=== PATIENT | female | born 1970 | race Caucasian/White ===

== ENCOUNTER → 2017-10-24 17:23 | Outpatient (CLI) | payer OTHER, SELFPAY ==
[2017-10-30 13:08] LABS: HPV APTIMA, High Risk Negative (Negative)
== END ==
PROVIDERS: Visit Provider Nurse Practitioner Women's Health
DX: Z12.4 Encounter for screening for malignant neoplasm of cervix (principal)
CPT/HCPCS: 88175; G0145

== ENCOUNTER 2020-01-24 12:33 | Emergency (ER) | payer OTHER, SELFPAY ==
[2020-01-24 12:34] VITALS: BP 162/112; PULSE 108; RESP 18; TEMP 36.6; O2SAT 99; BMI 26.5
[2020-01-24] MEDS: Diphth,Pertuss(Acell),Tet Vac 0.5 ML Vial IM (13:40)
--- NOTE | 2020-01-24 14:26 | ED.VIS.GEN ---
History of Present Illness Chief Complaint: Laceration Informant: Patient Narrative: Patient was using a tremor this morning and sustained a laceration to the right ring and long finger. Unknown last tetanus. She is left-handed Past Medical History - Allergies and Home Meds Allergies/Adverse Reactions: Allergies No Known Allergies Allergy (Verified 01/24/20 12:37) Primary Care Physician: Neto Lisa MD [STAFF PHYSICIAN] - 10 Day for suture removal Past Medical History: None Surgical History: noncontributory Smoking Status: Never smoker Drugs: None Review of Systems General: Denies: Chills, Fever, Sweats Eyes: Denies: Visual changes - bilaterally, Diplopia ENT: Denies: Rhinorrhea, Sore throat Cardiovascular: Denies: Chest pain, Palpitations Respiratory: Denies: Dyspnea, Cough, Dyspnea on exertion Gastrointestinal: Denies: Abdominal pain, Nausea, Vomiting, Diarrhea, Melena, Hematochezia Genitourinary: Denies: Dysuria, Hematuria, Frequency Musculoskeletal: Reports: Extremity Pain. Denies: Back pain Skin: Denies: Rash, Wounds Neurological: Denies: Headache, Weakness, Numbness Physical Exam Vital Signs/Narrative: Vital Signs Temp Pulse Resp BP Pulse Ox 01/24/20 12:34 97.8 F 108 H 18 162/112 H 99 Inital Vital Signs reviewed: Yes General: Well nourished, Well developed, No Acute Distress Head: Normocephalic, Atraumatic Eyes: Perrl, EOMI ENT: Moist mucous membranes, No rhinorrhea Neck: Supple, Nontender Cardiovascular: Regular rate, Regular rhythm, No murmurs Respiratory: No distress, CTA bilaterally, Chest nontender Abdomen: Soft, Nontender, Nondistended, Normal bowel sounds Back: Nontender, Normal Inspection Extremities: No edema, Tenderness Skin: Normal color, No rash, Trauma - Right fat pad of ring finger demonstrates a 1.5 cm curvilinear laceration. No injury to the dorsal aspect. Right middle finger demonstrates a macerated 1.5 cm laceration over the fat pad. No injury to the dorsal aspect. Neurological: Alert, Oriented x3, Cranial nerves II-XII grossly intact, Normal Strength, Normal Sensation Psychological: Normal affect, Normal Mood Diagnostic/Tx/Re-eval - Medical Decision Making Wounds were washed with soap and water she underwent local digital block using 1% lidocaine using a single volar approach. After adequate anesthesia wounds were washed with Shur-Clens and explored. The ring finger was closed using a total of #4 simple interrupted 5-0 Ethilon sutures. The middle finger was closed using a total of #5 simple interrupted 5-0 Ethilon sutures. Tetanus was updated with Adacel. Wounds were dressed by nursing. Local wound care discussed stitches will need to be removed in 10 days. ED Disposition - Plan for ED Patient: Disposition: Home or Assisted Living Diagnosis: Finger laceration Instructions: ED Laceration Hand Referrals: Neto Lisa MD [STAFF PHYSICIAN] - 10 Day for suture removal
== END 2020-01-24 14:49 | disposition home or self-care (01) ==
PROVIDERS: Emergency Provider Emergency Medicine
DX: S61.214A Laceration without foreign body of right ring finger without damage to nail, initial encounter (principal); S61.212A Laceration without foreign body of right middle finger without damage to nail, initial encounter; Z23 Encounter for immunization; W29.3XXA Contact with powered garden and outdoor hand tools and machinery, initial encounter; Y93.89 Activity, other specified; Y92.89 Other specified places as the place of occurrence of the external cause; Y99.8 Other external cause status
CPT/HCPCS: 12002; 90715; 99284

== ENCOUNTER 2020-11-07 16:57 | Inpatient (IN) | payer OTHER, SELFPAY ==
[2020-11-07] VITALS (9 sets, daily range): BP systolic 123–166; BP diastolic 71–90; PULSE 73–90; RESP 17–18; TEMP 36.5–37.3; O2SAT 98–100; BMI 26.2
--- NOTE | 2020-11-07 17:50 | CT_ITS ---
HISTORY: vaginal infection/perineum EXAMINATION: CT Abdomen And Pelvis W/ Contrast Injection TECHNIQUE: Helically acquired images were obtained of the abdomen and pelvis following IV contrast. A radiation dose optimization technique was used for this scan. IV Contrast dosage and agent: Not specified Oral contrast: None. COMPARISON: None FINDINGS: LOWER CHEST: Lung bases are clear. No cardiomegaly or pericardial effusion. LIVER: Homogeneous. No focal mass. GALLBLADDER AND BILIARY TREE: Calcified gallstones. No gallbladder distension or wall edema. No intra- or extrahepatic biliary ductal dilation. PANCREAS: No focal cystic or solid mass. SPLEEN: Normal size without focal cystic or solid mass. ADRENAL GLANDS: No nodules. KIDNEYS AND URETERS: Normal renal size and position. No hydronephrosis. PERITONEUM: No ascites or free air. BOWEL: Normal appendix. No stomach or bowel distension. No focal inflammatory bowel wall changes. LYMPH NODES: No enlarged mesenteric or retroperitoneal lymph nodes. VESSELS: Aorta is non-dilated. URINARY BLADDER: Unremarkable. REPRODUCTIVE ORGANS: No pelvic masses. IUD in place. ABDOMINAL WALL: Subcutaneous fatty induration and edema of the anterior perineum and labia without discrete fluid collection or gas formation. BONES: No acute or aggressive abnormality. CT/Abdomen/Pelvis WITH Contrast IMPRESSION: Soft tissue edema/cellulitis of the anterior perineum and labia without evidence of abscess formation. Individualized dose optimization techniques were used for this CT. at 2111 Reported and signed by: Jose Wild MD Electronically Signed: Jose Wild MD at 21:10 EDT Tel , Service support ,
--- NOTE | 2020-11-07 17:52 | EKG12_ITS ---
Test Reason : DYSRHYTHMIA Blood Pressure : / mmHG Vent. Rate : 070 BPM Atrial Rate : 070 BPM P-R Int : 148 ms QRS Dur : 088 ms QT Int : 372 ms P-R-T Axes : 048 -05 025 degrees QTc Int : 401 ms Normal sinus rhythm Normal ECG Confirmed by CARTER VELAZQUEZ, CARLYN ([id number]), editor department GARTH DAVID ([id number]) on 11/10/2020 12:48:52 PM Referred By: RANDALL Confirmed By:CARLYN MACHADO MD
--- NOTE | 2020-11-07 17:54 | ED.VIS.FEGU ---
HPI HPI - Female History of Present Illness Chief Complaint: Vag Bleeding Narrative Narrative: Patient presents with what she thinks is a vaginal infection. She states that she shaved her genital area last week, approximately 6 days ago. She began feeling ill on Saturday, and not right. , she felt fatigued. She denies any fever or chills, but endorses malaise and fatigue. No chest pain or shortness of breath. Over the weekend, she states that her genital area and labia became inflamed and swollen. She has pain with urination to the point where she does not want to drink a lot of fluid because it hurts when she urinates. She has noticed a lot of vaginal discharge in the area. She has pain with walking and movement. She states that the area is very inflamed. [facility] Medical History (Updated 11/07/20 @ 22:[address] Neto Lisa MD) Left carpal tunnel syndrome Migraines Home Medications [id number] 250 mg-250 mg-65 mg tablet 1 tab PO ONCE 10/24/17 [History Last Taken Unknown] ibuprofen 200 mg tablet 200 mg PO TID-QID PRN 10/24/17 [History Last Taken Unknown] levonorgestrel 20 mcg/24 hours (6 yrs) 52 mg intrauterine device 1 insert INTRAUTERINE ONCE 10/24/17 [History Last Taken Unknown] Allergy/AdvReac Type Severity Reaction Status Date / Time No Known Allergies Allergy Verified 01/24/20 12:37 Family History Mother Diabetes Hypertension Hyperlipidemia Social History (Updated 01/02/18 @ 15:20 by Elsie Ritchie NP, SCIENCE MANAGER-C) Smoking Status: Never smoker alcohol intake: current details: occasionally substance use type: does not use caffeine: Yes what type of physical activity do you participate in: walking and weight training frequency: daily seatbelt use: always do you feel safe at home: Yes additional social history: - Eliezer-Works at [employer] Patient works at [employer] ROS ROS ED ROS Narrative Constitutional: No fever, no chills. Positive malaise and fatigue. HEENT: No sore throat. No neck pain. No loss of vision. No rhinorrhea. Cardiovascular: No chest pain. No palpitations. No pedal edema. Respiratory: No cough, no shortness of breath. Abdominal: No abdominal pain. No nausea. No vomiting. Genitourinary: Positive dysuria. No hematuria. Positive vaginal swelling and vaginal pain. Positive discharge. Neurologic: No headaches. No dizziness. No lightheadedness. Skin: No rash. No change in color. EXAM Physical Exam Narrative Exam Narrative: Afebrile. Vital signs noted. HEENT: Normocephalic. Atraumatic. PERRL, EOMI. Neck soft and supple. Cardiovascular: Regular rate and rhythm. No murmurs, rubs, or gallops appreciated. Respiratory: No tachypnea. Lungs clear to auscultation bilaterally. Gastrointestinal: Abdomen soft, nontender, with normoactive bowel sounds. No rebound or guarding. Genitourinary: Salon Customer Experience Specialist present. Positive swelling of labia minora and majora with purulent discharge surrounding. Minimal tenderness in perineal area with mild erythema. No fluctuance. Positive purulent discharge. Neurological: Nonfocal, nonlateralizing. Skin: No rash. Normal color. No pallor. Musculoskeletal: No pedal edema. Full range of motion extremities. Const Vital Signs: 11/07/20 16:58 11/07/20 16:59 11/07/20 17:55 Temperature 99.0 F 99.0 F Temperature Source Oral Oral Pulse Rate 90 90 Respiratory Rate 18 18 Blood Pressure 166/90 H 166/90 H Blood Pressure Mean 115 115 Pulse Ox 100 100 Oxygen Delivery Method Room Air Room Air Room Air 11/07/20 18:26 11/07/20 19:00 11/07/20 20:15 Temperature 99.1 F 98.7 F Temperature Source Oral Temporal Pulse Rate 83 73 80 Respiratory Rate 18 17 18 Blood Pressure 156/82 H 156/82 H Blood Pressure Mean 106 106 Pulse Ox 100 100 98 Oxygen Delivery Method Room Air Room Air Room Air 11/07/20 21:00 Temperature Temperature Source Pulse Rate 82 Respiratory Rate 18 Blood Pressure 147/78 H Blood Pressure Mean 101 Pulse Ox 100 Oxygen Delivery Method Room Air MDM MDM MDM Narrative Medical decision making narrative: Comprehensive work-up was pursued. Concern is for deeper infection of the pelvis. I did perform a sepsis work-up. CBC shows normal white count of 6.9, hemoglobin stable at 15.7, with hematocrit 49.4. Normal platelet count. CMP is grossly normal. Lactic acid normal at 1.8. Blood cultures are pending. She does have white cells in her urinalysis, but I do feel that it may be more of a contaminant given her physical examination with a lot of discharge about the introitus and from the labia minora. CT of the abdomen and pelvis with IV contrast shows cellulitis of the perineum and of the labia with soft tissue swelling, but no discrete abscess. She was started on vancomycin and Zosyn. I did discuss the patient with the PRODUCT ENGINEER on-call who agrees with inpatient admission to the hospitalist. The patient does see Elsie Ritchie the nurse practitioner who inserted her IUD. Patient was offered morphine for analgesia, but requested something like ibuprofen she was administered Toradol 30 mg intravenously. Given the extent of her cellulitis, and discomfort, patient was discussed with the hospitalist for admission. She is in stable condition. Lab Data Attestation: I reviewed the patient's lab results. Labs: Laboratory Results - last 24 hr 11/07/20 11/07/20 11/07/20 18:21 18:21 18:21 WBC 6.9 RBC 5.71 H Hgb 15.7 H Hct 49.4 H MCV 86.5 MCH 27.5 MCHC 31.8 L RDW Std Deviation 40.3 RDW Coeff of Kiana 12.8 Plt Count 270 MPV 11.7 Immature Gran % (Auto) 0.400 Neut % (Auto) 65.1 Lymph % (Auto) 25.0 [place] % (Auto) 8.8 Eos % (Auto) 0.1 Baso % (Auto) 0.6 Absolute Neuts (auto) 4.5 Absolute Lymphs (auto) 1.73 Nucleated RBC % 0 PT 12.5 INR 1.0 APTT 22.7 L Sodium 138 Potassium 3.8 Chloride 106 Carbon Dioxide 26.0 Anion Gap 6 BUN 13 Creatinine 0.60 Estim Creat Clear Calc 91.76 Est GFR (MDRD) Af Amer 135 Est GFR (MDRD) Non-Af 111 BUN/Creatinine Ratio 21.6 H Glucose 254 H Lactic Acid Calcium 9.0 Total Bilirubin 0.60 AST 20 ALT 24 Alkaline Phosphatase 174 H Total Protein 8.5 H Albumin 3.6 Globulin 4.9 H Albumin/Globulin Ratio 0.7 L Urine Color Urine Clarity Urine pH Ur Specific [place] Urine Protein Urine Glucose (UA) Urine Ketones Urine Occult Blood Urine Nitrite Urine Bilirubin Urine Urobilinogen Ur Leukocyte Esterase Urine RBC Urine WBC Ur Squamous Epith Cells Urine Bacteria Urine Mucus 11/07/20 11/07/20 18:21 18:21 WBC RBC Hgb Hct MCV MCH MCHC RDW Std Deviation RDW Coeff of Kiana Plt Count MPV Immature Gran % (Auto) Neut % (Auto) Lymph % (Auto) [place] % (Auto) Eos % (Auto) Baso % (Auto) Absolute Neuts (auto) Absolute Lymphs (auto) Nucleated RBC % PT INR APTT Sodium Potassium Chloride Carbon Dioxide Anion Gap BUN Creatinine Estim Creat Clear Calc Est GFR (MDRD) Af Amer Est GFR (MDRD) Non-Af BUN/Creatinine Ratio Glucose Lactic Acid 1.8 Calcium Total Bilirubin AST ALT Alkaline Phosphatase Total Protein Albumin Globulin Albumin/Globulin Ratio Urine Color Yellow Urine Clarity Cloudy Urine pH 5.0 Ur Specific [place] 1.025 Urine Protein 100 H Urine Glucose (UA) 1000 H Urine Ketones 150 A* Urine Occult Blood 150 H Urine Nitrite Negative Urine Bilirubin Negative Urine Urobilinogen Normal Ur Leukocyte Esterase 500 H Urine RBC 10-25 SEEN Urine WBC 50-100 SEEN Ur Squamous Epith Cells 0-5 SEEN Urine Bacteria RARE Urine Mucus 0 SEEN Radiography Diagnostic Testing: Radiology Impression Abdomen/Pelvis CT 11/07/20 17:50 IMPRESSION: Soft tissue edema/cellulitis of the anterior perineum and labia without evidence of abscess formation. Individualized dose optimization techniques were used for this CT. at 2111 Reported and signed by: Jose Wild MD Electronically Signed: Jose Wild MD at 21:10 EDT Tel , Service support , Discharge Plan Triage Chief Complaint: Vag Bleeding ED Provider: Trenton Tripp Dx/Rx/DC Orders Primary Care Provider: Care Physician,No Primary
--- NOTE | 2020-11-07 18:12 | NURSING ---
NO OLD EKGS
[2020-11-07] MEDS: 0.9% Normal Saline 1,000 ML 999 ML IV (18:21)
[2020-11-07 18:31] LABS: Mucous, Urine 0 SEEN /hpf (<or=2+)
[2020-11-07 18:35] LABS: Absolute Lymphocyte Count 1.73 X10^3/uL (0.83-4.51); Absolute Neutrophil Count 4.5 X10^3/uL (2.0-7.7); Basophil# 0.04 X10^3/uL; Basophil% 0.6 % (0-1); Color, Urine Yellow (Yellow); Eosinophil# 0.01 X10^3/uL; Eosinophils% 0.1 % (0-5); Glucose, Dipstick 1000 mg/dl (Normal); Hematocrit 49.4 % (37-47); Hemoglobin 15.7 g/dL (12.0-15.0); Leukocyte Esterase-Dipstick 500 /ul (Negative); Lymphocyte # 1.73 X10^3/ul (0.83-4.51); Mean Corp Hgb Conc 31.8 g/dL (32-36); Mean Corpuscular Hgb 27.5 pg (27.0-32.0); Mean Corpuscular Volume 86.5 fL (81-99); Mean Platelet Vol. 11.7 fl (6.2-12.0); Monocyte# 0.61 X10^3/uL; Monocyte% 8.8 % (0-10); NRBC Flagged by Analyzer 0 % (0-5); Neutrophil # 4.51 X10^3/uL (2.7-7.7); Neutrophil % 65.1 % (47-70); Nitrite-Dipstick Negative (Negative); Occult Blood-Urine 150 /ul (Negative); Platelet Count 270 K/mm3 (150-450); Protein-Dipstick 100 mg/dl (Negative); RBC Distribution Width CV 12.8 % (11.6-14.6); RBC Distribution Width SD 40.3 fl (35.1-43.9); Red Blood Count 5.71 M/mm3 (4.2-5.4); Specific Gravity, Urine 1.025 (1.002-1.030); Urine Bilirubin Dipstick Negative (Negative); Urine Clarity Cloudy (Clear); Urine Urobilinogen Normal (Normal); White Blood Count 6.9 K/mm3 (4.4-11.0)
[2020-11-07 18:43] LABS: Ketone-Dipstick 150 mg/dl (Negative); Prothrombin Time (Protime)PT. 12.5 SECONDS (11.7-14.9)
[2020-11-07 18:44] LABS: Partial Thromboplast Time 22.7 Seconds (24.1-36.2)
[2020-11-07 18:45] LABS: Bacteria RARE /hpf (None Seen); Red Blood Cells-Urine 10-25 SEEN /hpf (0-5); Squamous Epithelial Cells - UA 0-5 SEEN /hpf (5-10); White Blood Cells 50-100 SEEN /hpf (0-5)
[2020-11-07 19:02] LABS: ALB/GLOB Ratio 0.7 RATIO (0.9-2.4); AST(SGOT) 20 U/L (15-37); Alanine Aminotransfer ALT/SGPT 24 U/L (13-56); Albumin, Serum 3.6 g/dL (3.2-5.0); Alkaline Phosphatase 174 U/L (45-117); Anion Gap 6 (5-15); BUN 13 mg/dL (7-18); BUN/Creat Ratio 21.6 RATIO (10-20); Chloride 106 mmol/L (98-107); EST Glomerular Filtration Rate 111 mL/min (>60); Est Glom Filt Rate - Afr Amer 135 mL/min (>60); Estimated Creatinine Clearance 91.76 ml/min; Globulin 4.9 g/dL (2.2-4.2); Glucose 254 mg/dL (74-106); Potassium 3.8 mmol/L (3.5-5.1); Protein, Total 8.5 g/dL (6.4-8.2); Sodium Level 138 mmol/L (136-145)
[2020-11-07 19:03] LABS: Lactic Acid 1.8 mmol/L (0.4-1.9)
[2020-11-07] MEDS: Ketorolac 30 MG/ML Syringe IV (22:10)
--- NOTE | 2020-11-07 22:25 | HP.PCM_ITS ---
HPI - General HPI Narrative JOEL HERNANDEZ, is a 50 F who presents to the emergency room with chief complaint of vaginal discomfort and bleeding. After shaving her perineum last week patient developed erythema and inflammation on Saturday along with soreness that has progressed throughout the weekend and now has become unbearable. The patient is experiencing fevers with weakness but denies shortness of breath or chest pain. She will be admitted to general medical floor placed on IV vancomycin and Zosyn and consider OB surgeon consult should abscess develop. [facility] Medical History (Updated 11/07/20 @ 22:[address] Neto Lisa MD) Left carpal tunnel syndrome Migraines Home Medications [id number]-[id number] 250 mg-250 mg-65 mg tablet 1 tab PO ONCE 10/24/17 [History Last Taken Unknown] ibuprofen 200 mg tablet 200 mg PO TID-QID PRN 10/24/17 [History Last Taken Unknown] levonorgestrel 20 mcg/24 hours (6 yrs) 52 mg intrauterine device 1 insert INTRAUTERINE ONCE 10/24/17 [History Last Taken Unknown] Allergy/AdvReac Type Severity Reaction Status Date / Time No Known Allergies Allergy Verified 01/24/20 12:37 Family History Mother Diabetes Hypertension Hyperlipidemia Social History (Updated 01/02/18 @ 15:20 by Elsie Ritchie NP, TYRE FITTER-C) Smoking Status: Never smoker alcohol intake: current details: occasionally substance use type: does not use caffeine: Yes what type of physical activity do you participate in: walking and weight training frequency: daily seatbelt use: always do you feel safe at home: Yes additional social history: - Eliezer-Works at [employer] Patient works at [employer] ROS Constitutional Constitutional: Reports chills, fatigue and fever(s) Eyes Eyes: Denies change in vision ENT HEENT: Denies dysphagia Cardiovascular Cardiovascular: Denies chest pain Respiratory/Chest Respiratory/Chest: Denies cough Gastrointestinal Gastrointestinal: Denies abdominal pain Genitourinary Genitourinary: Reports dysuria, hematuria and urinary hesitancy Musculoskeletal Musculoskeletal: Denies back pain Integumentary Integumentary: Reports wounds Neurologic Neurologic: Denies abnormal speech Psychiatric Psychiatric: Denies anxiety Vital Signs Vital Signs Vital Signs: 11/07/20 16:58 11/07/20 16:59 11/07/20 17:55 Temperature 99.0 F 99.0 F Temperature Source Oral Oral Pulse Rate 90 90 Respiratory Rate 18 18 Blood Pressure 166/90 H 166/90 H Blood Pressure Mean 115 115 Pulse Ox 100 100 Oxygen Delivery Method Room Air Room Air Room Air 11/07/20 18:26 11/07/20 19:00 11/07/20 20:15 Temperature 99.1 F 98.7 F Temperature Source Oral Temporal Pulse Rate 83 73 80 Respiratory Rate 18 17 18 Blood Pressure 156/82 H 156/82 H Blood Pressure Mean 106 106 Pulse Ox 100 100 98 Oxygen Delivery Method Room Air Room Air Room Air 11/07/20 21:00 Temperature Temperature Source Pulse Rate 82 Respiratory Rate 18 Blood Pressure 147/78 H Blood Pressure Mean 101 Pulse Ox 100 Oxygen Delivery Method Room Air Weight Weight: 147 lb 11.355 oz Body Mass Index (BMI) 26.2 Physical Exam Const oriented x3 HEENT normocephalic and head/scalp atraumatic Neck supple Lymph Lymphatic: no lymphadenopathy noted Resp normal respiratory effort Cardio regular rate, regular rhythm, S1 normal heart sound and S2 normal heart sound GI normal to inspection, nondistended, normoactive bowel sounds Extremity normal capillary refill Skin Skin Narrative: entire perineum, erythema swollen with discharge Wounds: wounds noted Neuro CN's II-XII intact bilaterally Psych affect normal Results Lab / Micro Data Result Diagrams: 11/07/20 18:21 11/07/20 18:21 Labs: Laboratory Results - last 24 hr 11/07/20 18:21: WBC 6.9, RBC 5.71 H, Hgb 15.7 H, Hct 49.4 H, MCV 86.5, MCH 27.5, MCHC 31.8 L, RDW Std Deviation 40.3, RDW Coeff of Kiana 12.8, Plt Count 270, MPV 11.7, Immature Gran % (Auto) 0.400, Neut % (Auto) 65.1, Lymph % (Auto) 25.0, [place] % (Auto) 8.8, Eos % (Auto) 0.1, Baso % (Auto) 0.6, Absolute Neuts (auto) 4.5, Absolute Lymphs (auto) 1.73, Nucleated RBC % 0 11/07/20 18:21: PT 12.5, INR 1.0, APTT 22.7 L 11/07/20 18:21: Sodium 138, Potassium 3.8, Chloride 106, Carbon Dioxide 26.0, Anion Gap 6, BUN 13, Creatinine 0.60, Estim Creat Clear Calc 91.76, Est GFR (MDRD) Af Amer 135, Est GFR (MDRD) Non-Af 111, BUN/Creatinine Ratio 21.6 H, Glucose 254 H, Calcium 9.0, Total Bilirubin 0.60, AST 20, ALT 24, Alkaline Phosphatase 174 H, Total Protein 8.5 H, Albumin 3.6, Globulin 4.9 H, Albumin/Globulin Ratio 0.7 L 11/07/20 18:21: Lactic Acid 1.8 11/07/20 18:21: Urine Color Yellow, Urine Clarity Cloudy, Urine pH 5.0, Ur Specific [place] 1.025, Urine Protein 100 H, Urine Glucose (UA) 1000 H, Urine Ketones 150 A*, Urine Occult Blood 150 H, Urine Nitrite Negative, Urine Bilirubin Negative, Urine Urobilinogen Normal, Ur Leukocyte Esterase 500 H, Urine RBC 10-25 SEEN, Urine WBC 50-100 SEEN, Ur Squamous Epith Cells 0-5 SEEN, Urine Bacteria RARE, Urine Mucus 0 SEEN Radiology Impression Abdomen/Pelvis CT 11/07/20 17:50 IMPRESSION: Soft tissue edema/cellulitis of the anterior perineum and labia without evidence of abscess formation. Individualized dose optimization techniques were used for this CT. at 2111 Reported and signed by: Jose Wild MD Electronically Signed: Jose Wild MD at 21:10 EDT Tel , Service support , Assessment & Plan Assessment/Plan (1) Vaginal cuff cellulitis: PLAN: 1. Vaginal cellulitis?admit patient to general medical floor continue vancomycin and Zosyn initiated in the emergency room, Toradol 15 mg IV every 6 hours as needed pain we'll add Zofran as needed for nausea and consider consult in the morning by OB surgeon if necessary. 2. DVT prophylaxis?low molecular weight heparin Charges/Coding Visit Charges Inpatient E&M: 19814 Init Hosp L2
[2020-11-07] MEDS: Vancomycin IV 1,000 MG/200 ML BAG 200 MG IV (23:06)
[2020-11-08 00:25] VITALS: BP 129/86; PULSE 74; RESP 16; TEMP 37.1; O2SAT 98; BMI 27.0
[2020-11-08 00:55] VITALS: RESP 16
--- NOTE | 2020-11-08 01:41 | PCM.RX.CS ---
Consult Pharmacy has been consulted to manage selected antiobiotic: Vancomycin Type of Consult: New start Suspected Infection: Skin/Soft tissue Labs: Sodium 138 mmol/L (136-145) 11/07/20 18:21 Potassium 3.8 mmol/L (3.5-5.1) 11/07/20 18:21 Chloride 106 mmol/L (98-107) 11/07/20 18:21 Carbon Dioxide 26.0 mmol/L (21.0-32.0) 11/07/20 18:21 Anion Gap 6 (5-15) 11/07/20 18:21 BUN 13 mg/dL (7-18) 11/07/20 18:21 Creatinine 0.60 mg/dL (0.55-1.02) 11/07/20 18:21 Est GFR (MDRD) Af Amer 135 mL/min (>60) 11/07/20 18:21 Est GFR (MDRD) Non-Af 111 mL/min (>60) 11/07/20 18:21 BUN/Creatinine Ratio 21.6 RATIO (10-20) H 11/07/20 18:21 Glucose 254 mg/dL (74-106) H 11/07/20 18:21 Weight used for dosin.2 kg Estimated Creatinine Clearance: 91.8 Goal Trough: 10-15 mcg/mL Pharmacy Plan for Drug Dosing: Pharmacy Service will continue to monitor and adjust dosing as required. Medications Vancomycin HCl (Vancomycin) 1,000 mg in 200 mls @ 200 mls/hr IV Q12H MARLENE Discontinued Medications Vancomycin HCl (Vancomycin) 1,000 mg in 200 mls @ 200 mls/hr 15 mg/kg (1000 mg) IV X1 ONE Stop: 11/07/20 22:28 Last Admin: 11/08/20 00:10 Dose: Infused Documented by: Follow-Up Labs: Trough Vancomycin Labs to be done on [date and time ordered]: 11/09 @ 1039
[2020-11-08] MEDS: Ketorolac 15 MG/ML Vial IV (01:57)
[2020-11-08 06:10] VITALS: BP 151/91; PULSE 90; RESP 16; TEMP 37.1; O2SAT 100
[2020-11-08] MEDS: Ibuprofen 200 MG Tablet PO ×2 (06:16→13:09)
[2020-11-08 06:19] LABS: Absolute Lymphocyte Count 1.88 X10^3/uL (0.83-4.51); Absolute Neutrophil Count 3.7 X10^3/uL (2.0-7.7); Basophil# 0.02 X10^3/uL; Basophil% 0.3 % (0-1); Eosinophil# 0.04 X10^3/uL; Eosinophils% 0.7 % (0-5); Hematocrit 39.5 % (37-47); Hemoglobin 12.5 g/dL (12.0-15.0); Lymphocyte # 1.88 X10^3/ul (0.83-4.51); Lymphocyte % 30.7 % (19-41); Mean Corp Hgb Conc 31.6 g/dL (32-36); Mean Corpuscular Hgb 27.3 pg (27.0-32.0); Mean Corpuscular Volume 86.2 fL (81-99); Mean Platelet Vol. 11.1 fl (6.2-12.0); Monocyte# 0.52 X10^3/uL; Monocyte% 8.5 % (0-10); NRBC Flagged by Analyzer 0 % (0-5); Neutrophil # 3.65 X10^3/uL (2.7-7.7); Neutrophil % 59.5 % (47-70); Platelet Count 231 K/mm3 (150-450); RBC Distribution Width CV 12.7 % (11.6-14.6); RBC Distribution Width SD 39.8 fl (35.1-43.9); Red Blood Count 4.58 M/mm3 (4.2-5.4); White Blood Count 6.1 K/mm3 (4.4-11.0)
[2020-11-08 06:41] LABS: Anion Gap 6 (5-15); BUN 13 mg/dL (7-18); BUN/Creat Ratio 26.8 RATIO (10-20); Calcium,Total 7.9 mg/dL (8.5-10.1); Chloride 106 mmol/L (98-107); Creatinine, Serum 0.48 mg/dL (0.55-1.02); EST Glomerular Filtration Rate 143 mL/min (>60); Est Glom Filt Rate - Afr Amer 173 mL/min (>60); Glucose 240 mg/dL (74-106); Sodium Level 141 mmol/L (136-145)
[2020-11-08 09:23] VITALS: BP 150/74; PULSE 82; RESP 16; TEMP 37.1; O2SAT 100
--- NOTE | 2020-11-08 09:55 | CASEMGMT ---
[place] Assessment: Face to Face with pt for initial transition planning/care coordination assessment. RN MIROSLAVA introduced self and role at [facility], pt voices understanding and consents to assessment. Pt is A/O x4 and answers all questions appropriately at this time. Pt standing at bedside ready to go into bathroom to get cleaned up. Care providers, pharmacy, and demographics verified/updated. Admitting Dx: vaginal cellulitis PCP:Pt denies having a PCP. Provided pamphlet of local PCP's. Specialists:Pt denies having any specialists. Preferred Pharmacy: [facility] Retail Insurance: [employer] Prescription Benefit: yes LW/HPOA: Pt denies having a LW/DPOA. LNOK: Kay Rich, sister Living Arrangements: Pt lives with in a two story house with three steps to enter. Pt states she is I in ADL's and denies concerns at home. Transportation: Pt drives self and denies concerns with transportation. DME/HHC/SNF: Pt denies having any DME at home, hx of HHC or SNF stays. Pt works manager multimedia. Pt states no concerns with going home at time of dc. Pt states no further concerns/needs. CM to follow. Advised pt to ask CM if any further question/concerns/needs arise, voices understanding. Pt Goal: Home Plan: Home
--- NOTE | 2020-11-08 10:22 | PN.HOSP_ITS ---
Documented by User: Catina James NP, GUEST SERVICES REPRESENTATIVE-C 11/08/20 10:50 Subjective Subjective Patient seen and examined. Complains of significant external vaginal discomfort. Conde placed overnight due to painful urination. Denies fever, chills. Complains of generalized vaginal area pain, no localized pain or absce ss. Objective Data Objective Data Vital Signs: Vital Signs Temp Pulse Resp BP Pulse Ox 98.7 F 82 16 150/74 H 100 11/08/20 09:23 11/08/20 09:23 11/08/20 09:23 11/08/20 09:23 11/08/20 09:23 Oxygen Delivery Method Room Air Weight: 152 lb 8.958 oz Body Mass Index (BMI) 27.0 Intake & Output: Intake and Output for Last 24 Hours 11/06/20 11/07/20 11/08/20 23:59 23:59 23:59 Intake Total 1050 / 1050 250 / 250 Output Total 350 / 350 Balance 1050 / 1050 -100 / -100 Lab / Micro Data Result Diagrams: 11/08/20 05:42 11/08/20 05:42 Labs: Laboratory Results - last 24 hr 11/07/20 18:21: WBC 6.9, RBC 5.71 H, Hgb 15.7 H, Hct 49.4 H, MCV 86.5, MCH 27.5, MCHC 31.8 L, RDW Std Deviation 40.3, RDW Coeff of Kiana 12.8, Plt Count 270, MPV 11.7, Immature Gran % (Auto) 0.400, Neut % (Auto) 65.1, Lymph % (Auto) 25.0, [place] % (Auto) 8.8, Eos % (Auto) 0.1, Baso % (Auto) 0.6, Absolute Neuts (auto) 4.5, Absolute Lymphs (auto) 1.73, Nucleated RBC % 0 11/07/20 18:21: PT 12.5, INR 1.0, APTT 22.7 L 11/07/20 18:21: Sodium 138, Potassium 3.8, Chloride 106, Carbon Dioxide 26.0, Anion Gap 6, BUN 13, Creatinine 0.60, Estim Creat Clear Calc 91.76, Est GFR (MDRD) Af Amer 135, Est GFR (MDRD) Non-Af 111, BUN/Creatinine Ratio 21.6 H, Glucose 254 H, Calcium 9.0, Total Bilirubin 0.60, AST 20, ALT 24, Alkaline Phosphatase 174 H, Total Protein 8.5 H, Albumin 3.6, Globulin 4.9 H, Albumin/Globulin Ratio 0.7 L 11/07/20 18:21: Lactic Acid 1.8 11/07/20 18:21: Urine Color Yellow, Urine Clarity Cloudy, Urine pH 5.0, Ur Specific [place] 1.025, Urine Protein 100 H, Urine Glucose (UA) 1000 H, Urine Ketones 150 A*, Urine Occult Blood 150 H, Urine Nitrite Negative, Urine Bilirubin Negative, Urine Urobilinogen Normal, Ur Leukocyte Esterase 500 H, Urine RBC 10-25 SEEN, Urine WBC 50-100 SEEN, Ur Squamous Epith Cells 0-5 SEEN, Urine Bacteria RARE, Urine Mucus 0 SEEN 11/08/20 05:42: WBC 6.1, RBC 4.58, Hgb 12.5, Hct 39.5, MCV 86.2, MCH 27.3, MCHC 31.6 L, RDW Std Deviation 39.8, RDW Coeff of Kiana 12.7, Plt Count 231, MPV 11.1, Immature Gran % (Auto) 0.300, Neut % (Auto) 59.5, Lymph % (Auto) 30.7, [place] % (Auto) 8.5, Eos % (Auto) 0.7, Baso % (Auto) 0.3, Absolute Neuts (auto) 3.7, Absolute Lymphs (auto) 1.88, Nucleated RBC % 0 11/08/20 05:42: Sodium 141, Potassium 3.0 L, Chloride 106, Carbon Dioxide 29.0, Anion Gap 6, BUN 13, Creatinine 0.48 L, Estim Creat Clear Calc 114.70, Est GFR (MDRD) Af Amer 173, Est GFR (MDRD) Non-Af 143, BUN/Creatinine Ratio 26.8 H, Glucose 240 H, Calcium 7.9 L Radiography Diagnostic Testing: Radiology Impression Abdomen/Pelvis CT 11/07/20 17:50 IMPRESSION: Soft tissue edema/cellulitis of the anterior perineum and labia without evidence of abscess formation. Individualized dose optimization techniques were used for this CT. at 2111 Reported and signed by: Jose Wild MD Electronically Signed: Jose Wild MD at 21:10 EDT Tel , Service support , Physical Exam Const alert, oriented x3 and no apparent distress Orientation / Consciousness: awake, oriented to person, oriented to place and oriented to time HEENT normocephalic and moist oral mucous membranes Eyes PERRL, EOMs intact bilaterally and conjunctivae normal Neck no lymphadenopathy Resp normal respiratory effort and clear to auscultation bilaterally Cardio regular rate, regular rhythm and no murmurs Peripheral Pulses: pulses 2+ throughout GI normal to inspection, nondistended, normoactive bowel sounds, non-tender and non-distended Extremity normal to inspection Skin no rashes or lesions noted Skin Narrative: Vaginal cellulitis, purulent drainage. No evident abscess. Lesions: no lesions Rashes: no rashes Trauma: no lacerations or abrasions Neuro CN's II-XII intact bilaterally, no focal motor deficits, no sensory deficits noted and deep tendon reflexes 2+ bilaterally Psych mental status grossly normal and affect normal Assessment & Plan Assessment/Plan (1) Vaginal cuff cellulitis: PLAN: 1. Vaginal cellulitis-no evident abscess on exam. CT also without evidence of abscess. IV vanc and IV zosyn. Blood and urine cultures pending. Obtain wound culture and MRSA. As needed pain regimen. 2. Elevated glucose-check hemoglobin A1c. DVT prophylaxis-Heparin subcu This patient was seen by LAKISHA Wang under the supervision of Dr. Wadsworth. Documented by User: Dr. Noe Wadsworth MD 11/08/20 11:37 Objective Data Lab / Micro Data Result Diagrams: 11/08/20 05:42 11/08/20 05:42 Charges/Coding Addendum Addendum: Dr. Wadsworth: I personally reviewed the chart and examined the patient, and agree with the above findings. 50-year-old female presents to the hospital vaginal cellulitis after grooming about a week ago. She does have extensive cellulitic changes with purulent drainage. This will be cultured, will continue with IV antibiotics for now she still has significant discomfort and has a Conde in place secondary to significant burning with urination. Visit Charges Inpatient E&M: 38842 Subs Hosp L2
[2020-11-08] MEDS: Potassium Chloride Oral Tablet 20 MEQ 40 MEQ PO (11:01)
[2020-11-08] MEDS: Vancomycin IV 1,000 MG/200 ML BAG 200 MG IV ×2 (11:01→22:34)
[2020-11-08 12:08] LABS: M R Staph aureus DNA By PCR Negative (Negative); Probe Check PASS; Specimen Processing Control PASS
[2020-11-08 14:03] LABS: Hemoglobin A1c 12.4 % (3.8-5.6)
[2020-11-08] MEDS: ALPRAZolam 0.5 MG Tablet PO ×2 (14:12→22:34)
[2020-11-08] MEDS: oxyCODONE 5 MG Tablet PO ×2 (14:12→20:53)
[2020-11-08] MEDS: Insulin Lispro 100 UNIT/ML INSULN.PEN SC ×2 (16:45→21:29)
[2020-11-08 16:47] VITALS: BP 148/66; PULSE 80; RESP 18; TEMP 37.2; O2SAT 100
[2020-11-08 16:56] LABS: Bedside Glucose 176 mg/dL (70-110)
--- NOTE | 2020-11-08 17:00 | CHAPLAIN ---
Type of Pastoral Visit _x__ Initial Visit ___ Follow-up Visit ___ On-call Visit ___ General Patient Visit ___ Spiritual Assessment ___ Family Conference ___ Bereavement ___ Rapid Response ___ Code Blue ___ Other (describe below) Pastoral Care Referral From _x__ Patient ___ Family ___ Nurse ___ Physician ___ Assisted Living Assistant ___ Devil Tender ___ Other (describe below) Sacrament/Intervention _x__ Active listening ___ Anointing ___ Yazidi ___ Bereavement ___ Communion ___ Cyndi exploration ___ ___ Life review _x__ Prayer ___ Reconciliation ___ Sacrament of Sick _x__ Supportive presence ___ Wedding ___ Other (describe below) Pastoral Comments
[2020-11-08 20:50] VITALS: BP 145/69; PULSE 97; RESP 18; TEMP 38.2; O2SAT 97
[2020-11-08] MEDS: Acetaminophen 500 MG Tablet 1000 MG PO (20:53)
[2020-11-08 22:30] LABS: Bedside Glucose 263 mg/dL (70-110)
[2020-11-09] MEDS: oxyCODONE 5 MG Tablet PO ×3 (02:36→18:17)
[2020-11-09 02:56] VITALS: BP 128/58; PULSE 74; RESP 18; TEMP 36.8; O2SAT 94
[2020-11-09] MEDS: Insulin Lispro 100 UNIT/ML INSULN.PEN SC ×3 (06:44→21:42)
[2020-11-09 06:50] LABS: Bedside Glucose 214 mg/dL (70-110)
[2020-11-09 07:23] LABS: Anion Gap 6 (5-15); BUN 14 mg/dL (7-18); BUN/Creat Ratio 31.8 RATIO (10-20); Chloride 105 mmol/L (98-107); Creatinine, Serum 0.44 mg/dL (0.55-1.02); EST Glomerular Filtration Rate 160 mL/min (>60); Est Glom Filt Rate - Afr Amer 193 mL/min (>60); Estimated Creatinine Clearance 125.13 ml/min; Glucose 207 mg/dL (74-106); Potassium 3.2 mmol/L (3.5-5.1); Sodium Level 137 mmol/L (136-145)
[2020-11-09 08:35] VITALS: BP 145/84; PULSE 81; RESP 16; TEMP 37; O2SAT 97
[2020-11-09] MEDS: Acetaminophen 500 MG Tablet 1000 MG PO ×2 (08:41→18:18)
--- NOTE | 2020-11-09 09:49 | NURSING ---
Was consulted on patient for vaginal cellulitis from shaving. This nurse had actually assessed patient yesterday with nursing. labia quite edematous and tender. pt had frias placed the evening prior to help with the discomfort. the frias will most likely be discontinued today with possible discharge home. Had talked with PERNELL Kitchen. recommended A&D ointment to assist in soothing. calmoseptine may be too uncomfortable to remove. would recommend follow up with OBGYN if no improvement after discharge home.
--- NOTE | 2020-11-09 12:08 | PN.HOSP_ITS ---
Documented by User: Catina James NP, PSYCHIATRIC SPECIALIST-C 11/09/20 12:51 Subjective Subjective Patient seen and examined. Continues to have significant vaginal discomfort related to cellulitis. Continues to have significant drainage. Conde in place. Denies fever, chills. Discussed new diagnosis type 2 diabetes mellitus and plan of care. Objective Data Objective Data Vital Signs: Vital Signs Temp Pulse Resp BP Pulse Ox 98.6 F 81 16 145/84 H 97 11/09/20 08:35 11/09/20 08:35 11/09/20 08:35 11/09/20 08:35 11/09/20 08:35 Oxygen Delivery Method Room Air Weight: 152 lb 8.958 oz Body Mass Index (BMI) 27.0 Intake & Output: Intake and Output for Last 24 Hours 11/07/20 11/08/20 11/09/20 23:59 23:59 23:59 Intake Total 1050 / 1050 2390 / 2390 400 / 400 Output Total 2400 / 2400 450 / 450 Balance 1050 / 1050 -10 / -10 -50 / -50 Lab / Micro Data Result Diagrams: 11/08/20 05:42 11/09/20 06:40 Labs: Laboratory Results - last 24 hr 11/08/20 05:42: Hemoglobin A1c 12.4 H 11/08/20 08:35: MRSA (PCR) Negative 11/08/20 16:43: POC Glucose 176 H 11/08/20 21:27: POC Glucose 263 H 11/09/20 06:40: Sodium 137, Potassium 3.2 L, Chloride 105, Carbon Dioxide 26.0, Anion Gap 6, BUN 14, Creatinine 0.44 L, Estim Creat Clear Calc 125.13, Est GFR (MDRD) Af Amer 193, Est GFR (MDRD) Non-Af 160, BUN/Creatinine Ratio 31.8 H, Glucose 207 H, Calcium 8.0 L 11/09/20 06:43: POC Glucose 214 H Micro: Microbiology 11/08/20 11:25 Wound - Vaginal Wound Culture - Preliminary Beta streptococcus 11/07/20 18:21 Urine, Clean Catch Urine Culture - Final Mixed Gram Positive Organisms Physical Exam Const alert, oriented x3 and no apparent distress Orientation / Consciousness: awake, oriented to person, oriented to place and oriented to time HEENT normocephalic and moist oral mucous membranes Eyes PERRL, EOMs intact bilaterally and conjunctivae normal Neck no lymphadenopathy Resp normal respiratory effort and clear to auscultation bilaterally Cardio regular rate, regular rhythm and no murmurs Peripheral Pulses: pulses 2+ throughout GI normal to inspection, nondistended, normoactive bowel sounds, non-tender and non-distended Extremity normal to inspection Skin no rashes or lesions noted Skin Narrative: Vaginal cellulitis, purulent drainage. No evident abscess. Lesions: no lesions Rashes: no rashes Trauma: no lacerations or abrasions Neuro CN's II-XII intact bilaterally, no focal motor deficits, no sensory deficits noted and deep tendon reflexes 2+ bilaterally Psych mental status grossly normal and affect normal Assessment & Plan Assessment/Plan (1) Vaginal cuff cellulitis: PLAN: 1. Vaginal cellulitis-no evident abscess on exam. CT also without evidence of abscess. Transition to IV Ancef. Preliminary culture growing strep. Final culture pending. Continue warm compresses. Anticipate discharge 11/10/2020. 2. New diagnosis type 2 diabetes yezzrvun-Anbd-Whgny with sliding scale insulin. Metformin 500mg twice daily. Glargine 20 units nightly. Hemoglobin A1c DVT prophylaxis-not indicated, low risk Discharge planning: Glucometer/testing supplies/pen needles, long-acting insulin and pain medication sent to pharmacy. Will need addition of antibiotic sent to pharmacy at discharge. This patient was seen by LAKISHA Wang under the supervision of Dr. Wadsworth. Documented by User: Dr. Noe Wadsworth MD 11/09/20 13:20 Objective Data Lab / Micro Data Result Diagrams: 11/08/20 05:42 11/09/20 06:40 Charges/Coding Addendum Addendum: Dr. Wadsworth: I personally reviewed the chart and examined the patient, and agree with the above findings. 50-year-old female presents to the hospital vaginal cellulitis after grooming about a week ago. She does have extensive cellulitic changes with purulent drainage. This will be cultured, will continue with IV antibiotics for now she still has significant discomfort and has a Conde in place secondary to significant burning with urination. 11/29/2020: Redness has improved however still warm and tender. There is also still some drainage. Culture coming back with strep therefore can discontinue vancomycin and transition to Ancef IV. MRSA was negative. Hemoglobin A1c yesterday was elevated at 12.4. We will start her on insulin and Metformin on discharge she will need to follow-up with PCP for further monitoring and adjustment. Did discuss lifestyle modifications for weight loss. Visit Charges Inpatient E&M: 64826 Subs Hosp L2
[2020-11-09] MEDS: Potassium Chloride Oral Tablet 20 MEQ 40 MEQ PO (14:43)
[2020-11-09] MEDS: Cefazolin 1 GM/50 ML BAG IV ×2 (14:48→21:38)
[2020-11-09 17:05] LABS: Bedside Glucose 118 mg/dL (70-110)
[2020-11-09 17:16] LABS: Bedside Glucose 188 mg/dL (70-110)
[2020-11-09 20:00] VITALS: BP 131/79; PULSE 75; RESP 18; TEMP 37.1; O2SAT 96
[2020-11-09] MEDS: ALPRAZolam 0.5 MG Tablet PO (21:38)
[2020-11-09] MEDS: Ibuprofen 200 MG Tablet PO (21:44)
[2020-11-09 21:51] LABS: Bedside Glucose 268 mg/dL (70-110)
[2020-11-10] MEDS: oxyCODONE 5 MG Tablet PO ×2 (03:38→12:24)
[2020-11-10] MEDS: Acetaminophen 500 MG Tablet 1000 MG PO ×2 (03:39→12:24)
[2020-11-10 03:44] VITALS: BP 127/78; PULSE 75; RESP 18; TEMP 37.1; O2SAT 98
[2020-11-10] MEDS: Cefazolin 1 GM/50 ML BAG IV (06:14)
[2020-11-10 06:50] LABS: Bedside Glucose 120 mg/dL (70-110)
[2020-11-10 08:15] VITALS: BP 137/88; PULSE 80; RESP 14; TEMP 36.8; O2SAT 97
[2020-11-10 08:33] LABS: Anion Gap 8 (5-15); BUN 14 mg/dL (7-18); BUN/Creat Ratio 40.2 RATIO (10-20); Calcium,Total 8.5 mg/dL (8.5-10.1); Chloride 104 mmol/L (98-107); Creatinine, Serum 0.35 mg/dL (0.55-1.02); EST Glomerular Filtration Rate 210 mL/min (>60); Est Glom Filt Rate - Afr Amer 254 mL/min (>60); Glucose 111 mg/dL (74-106); Sodium Level 139 mmol/L (136-145)
--- NOTE | 2020-11-10 09:53 | PCM.DC ---
Discharge Instructions Follow Up Care Test Results: Test results from this visit will be discussed in further detail at your follow-up appointment, if applicable. Discharge Plan Admission Admit Date/Time: 11/07/20 22:36 Primary Reason for Your Visit: vaginal cuff cellulitis Attending Provider: Noe Wadsworth Primary Care Provider: Care Physician,No Primary Instructions Patient Instructions: Emptying and Cleaning Your ..., Discharge Instructions for ..., Discharge Instructions Caring ... Discharge Orders/Prescriptions Prescriptions: New oxycodone 5 mg Tablet 5 mg PO Q4H PRN PRN (Reason: Pain Score 6-10) 3 Days Qty: 15 RF: 0 insulin glargine 100 unit/mL (3 mL) insulin pen 20 unit subcut QHS Qty: 1 RF: 0 metformin 500 mg tablet 500 mg PO BID Qty: 60 RF: 0 (DME) pen needle,diabetic, disp unit 29 gauge x 1/2 needle See Rx Instructions .ROUTE .MEDSUPPLY Qty: 100 RF: 0 potassium chloride [Klor-Con M20] 20 mEq Tablet,Er Particles/Crystals 20 meq PO BIDCM 7 Days Qty: 14 RF: 0 cephalexin 500 mg tablet 500 mg PO .QID Qty: 28 RF: 0 Continued dvytdlm-ysvavmiqyabms-cqhhvmgb [Excedrin Migraine] 250-250-65 mg tablet 1 tab PO ONCE RF: 0 ibuprofen [Advil] 200 mg tablet 200 mg PO TID-QID PRN (Reason: Pain) RF: 0 levonorgestrel [Mirena] 20 mcg/24 hr (5 years) intrauterine device 1 insert Intrauterine ONCE RF: 0 Other Ambulatory Orders: Glucometer (Routine) Location: None Selected Ordered By: Catina James NP Referrals / Follow Up: Chaz Parker MD [STAFF PHYSICIAN] - In 1 Week (new onset diabetes. ) Care Physician,No Primary [Primary Care Provider] - Rita Dudley NP, IDENTIFICATION AND RECORDS COMMANDER-C [NON-STAFF] - 11/14/20 (for establishment of care and evaluation of vaginal swelling for d/c of frias) Disposition Disposition (needs filled in before D/C Order can be placed): Home, Self Care
--- NOTE | 2020-11-10 10:01 | PCM.DC.SUM ---
Documented by User: Marielena Rodríguez NP-C 11/10/20 10:16 Providers Date of Admission: 11/07/20 Primary Care Physician: No Primary Care Phys Consultations 11/09/20 09:34 Consult: Onc/Wound/local coordinator Routine Reason For Visit: VAGINAL CELLULITIS Diagnosis Discharge Diagnosis (1) Vaginal cuff cellulitis: Status: Acute Code(s): N76.0 - Acute vaginitis Plan: 1. Vaginal cellulitis- CT and physical exam without evidence of abscess. Will transition to keflex upon d/c Preliminary culture growing strep. Final culture pending. Continue warm compresses. Due to swelling will send patient home with frias catheter. Patient has no PCP and after discussion would prefer a female KNITTING MACHINE OPERATOR HELPER. Follow up with [facility] for establishment of care. 2. New diagnosis type 2 diabetes odsihxdn-Tulq-[place]zyu with sliding scale insulin. Metformin 500mg twice daily. Glargine 20 units nightly. Hemoglobin A1c 12.4. Follow up with Dr. Parker in 1-2 weeks. DVT prophylaxis-not indicated, low risk Discharge planning: Glucometer/testing supplies/pen needles, long-acting insulin, antibiotics and pain medication sent to pharmacy. Potassium supplement sent as well due to continued hypokalemia. Will need rechecked at follow up with PCP. This patient was seen by Catina James NP-C under the supervision of Dr. Wadsworth. Medications at Discharge Home Medications xgbsynv-vlzrmrqzmevwo-qxqtzwig 250 mg-250 mg-65 mg tablet 1 tab PO ONCE 10/24/17 ibuprofen 200 mg tablet 200 mg PO TID-QID PRN 10/24/17 levonorgestrel 20 mcg/24 hours (6 yrs) 52 mg intrauterine device 1 insert INTRAUTERINE ONCE 10/24/17 insulin glargine 20 unit SUBCUT QHS #1 kit 11/09/20 metformin 500 mg PO BID #60 tab 11/09/20 oxycodone 5 mg PO Q4H PRN PRN 3 Days #15 tab 11/09/20 pen needle,diabetic, disp unit #100 ea 11/09/20 cephalexin 500 mg PO .QID #28 tab 11/10/20 potassium chloride [Klor-Con M20] 20 meq PO BIDCM 7 Days #14 tab 11/10/20 Physical Exam Const alert, oriented x3 and no apparent distress HEENT normocephalic and head/scalp atraumatic Eyes conjunctivae normal and no scleral icterus Neck full ROM, supple and no JVD General: trachea midline Chest inspection of chest normal Resp normal respiratory effort, normal air movement and clear to auscultation bilaterally Cardio regular rate, regular rhythm, S1 normal heart sound and S2 normal heart sound GI normal to inspection, nondistended, normoactive bowel sounds, soft to palpation and non-tender Bladder / Kidney Exam: catheter in place urethral Groin / Perineum Exam: edema, erythema and tenderness Extremity normal to inspection, full ROM, normal capillary refill and no clubbing, cyanosis or edema Neuro oriented x3, moves all extremities, no focal motor deficits and no sensory deficits noted Psych mental status grossly normal, thought process normal, cooperative, affect normal and speech normal Medical Records Data Medical Nutrition Assessment Dietitian: Nutrition Therapy Diagnosis Start: 11/09/20 12:23 Freq: Status: Active Protocol: Document 11/09/20 12:47 RMA (Rec: 11/09/20 12:48 RMA [id number]) Nutrition Malnutrition Evidence of Malnutrition Exists No Intake Problem Decreased Nutrient Needs (specify) Etiology for carbohydrates related to endocrine dysfunction/newly dx DM type 2 Signs/Symptoms as evidenced by HgbA1C 12.4% Status Active Problem Recommendation Dietitian Recommendations/Changes Will change diet to carbohydrate-controlled/low fat. ONS not indicated. Additional diet education as per pt request. Weight / BMI Weight Weight: 152 lb 8.958 oz Body Mass Index (BMI) 27.0 ABG / Lab / Microbiology Data Result Diagrams: 11/08/20 05:42 11/10/20 06:02 Laboratory: Laboratory Results - last 24 hr 11/09/20 14:41: POC Glucose 118 H 11/09/20 17:06: POC Glucose 188 H 11/09/20 21:41: POC Glucose 268 H 11/10/20 06:02: Sodium 139, Potassium 3.0 L, Chloride 104, Carbon Dioxide 27.0, Anion Gap 8, BUN 14, Creatinine 0.35 L, Estim Creat Clear Calc 157.30, Est GFR (MDRD) Af Amer 254, Est GFR (MDRD) Non-Af 210, BUN/Creatinine Ratio 40.2 H, Glucose 111 H, Calcium 8.5 11/10/20 06:40: POC Glucose 120 H Microbiology: Microbiology 11/08/20 11:25 Wound - Vaginal Gram Stain - Final 11/08/20 11:25 Wound - Vaginal Wound Culture - Preliminary Beta streptococcus 11/07/20 18:21 Urine, Clean Catch Urine Culture - Final Mixed Gram Positive Organisms D/C Instructions Discharge Diet: Carb Control Diet Discharge Activity: May Shower May resume sexual activity in: 4-6 weeks Call your doctor if your incision/area has: Increased Pain/ Swelling and Increased Redness Call your doctor if you observe: Fever of 101 or Higher and Uncontrolled pain Cleanse incision/area with: Soap & Water Catheter: Frias to leg bag Additional Dressing/Incision Instructions: continue warm compresses at home Please Follow Up With: Rita Dudley NP, KNITTING MACHINE OPERATOR HELPER-C When: 3-5 days Meaningful Use Info Meaningful Use Diagnoses (Choose all that apply): None applicable Discharge Plan Admission Admit Date/Time: 11/07/20 22:36 Primary Reason for Your Visit: vaginal cuff cellulitis Attending Provider: Noe Wadsworth Primary Care Provider: Care Physician,No Primary Instructions Patient Instructions: Emptying and Cleaning Your ..., Discharge Instructions for ..., Discharge Instructions Caring ... Discharge Orders/Prescriptions Prescriptions: New oxycodone 5 mg Tablet 5 mg PO Q4H PRN PRN (Reason: Pain Score 6-10) 3 Days Qty: 15 RF: 0 insulin glargine 100 unit/mL (3 mL) insulin pen 20 unit subcut QHS Qty: 1 RF: 0 metformin 500 mg tablet 500 mg PO BID Qty: 60 RF: 0 (DME) pen needle,diabetic, disp unit 29 gauge x 1/2 needle See Rx Instructions .ROUTE .MEDSUPPLY Qty: 100 RF: 0 potassium chloride [Klor-Con M20] 20 mEq Tablet,Er Particles/Crystals 20 meq PO BIDCM 7 Days Qty: 14 RF: 0 cephalexin 500 mg tablet 500 mg PO .QID Qty: 28 RF: 0 Continued gqszlib-wxrlyahmyrcqg-kzfarzia [Excedrin Migraine] 250-250-65 mg tablet 1 tab PO ONCE RF: 0 ibuprofen [Advil] 200 mg tablet 200 mg PO TID-QID PRN (Reason: Pain) RF: 0 levonorgestrel [Mirena] 20 mcg/24 hr (5 years) intrauterine device 1 insert Intrauterine ONCE RF: 0 Other Ambulatory Orders: Glucometer (Routine) Location: None Selected Ordered By: Catina James NP Referrals / Follow Up: Chaz Parker MD [STAFF PHYSICIAN] - In 1 Week (new onset diabetes. ) Care Physician,No Primary [Primary Care Provider] - Rita Dudley NP, KNITTING MACHINE OPERATOR HELPER-C [NON-STAFF] - 11/14/20 (for establishment of care and evaluation of vaginal swelling for d/c of frias) Disposition Disposition (needs filled in before D/C Order can be placed): Home, Self Care Documented by User: Dr. Noe Wadsworth MD 11/10/20 10:35 Providers Date of Admission: 11/07/20 Reason For Visit: VAGINAL CELLULITIS Medications at Discharge Home Medications uxnqbno-mymgvihnevauw-kfzbbjzt 250 mg-250 mg-65 mg tablet 1 tab PO ONCE 10/24/17 ibuprofen 200 mg tablet 200 mg PO TID-QID PRN 10/24/17 levonorgestrel 20 mcg/24 hours (6 yrs) 52 mg intrauterine device 1 insert INTRAUTERINE ONCE 10/24/17 insulin glargine 20 unit SUBCUT QHS #1 kit 11/09/20 metformin 500 mg PO BID #60 tab 11/09/20 oxycodone 5 mg PO Q4H PRN PRN 3 Days #15 tab 11/09/20 pen needle,diabetic, disp unit #100 ea 11/09/20 cephalexin 500 mg PO .QID #28 tab 11/10/20 potassium chloride [Klor-Con M20] 20 meq PO BIDCM 7 Days #14 tab 11/10/20 ABG / Lab / Microbiology Data Result Diagrams: 11/08/20 05:42 11/10/20 06:02 Discharge Plan Admission Admit Date/Time: 11/07/20 22:36 Primary Reason for Your Visit: vaginal cuff cellulitis Attending Provider: Kotsonis,Noe F Primary Care Provider: Care Physician,No Primary Instructions Patient Instructions: Emptying and Cleaning Your ..., Discharge Instructions for ..., Discharge Instructions Caring ... Discharge Orders/Prescriptions Prescriptions: New oxycodone 5 mg Tablet 5 mg PO Q4H PRN PRN (Reason: Pain Score 6-10) 3 Days Qty: 15 RF: 0 insulin glargine 100 unit/mL (3 mL) insulin pen 20 unit subcut QHS Qty: 1 RF: 0 metformin 500 mg tablet 500 mg PO BID Qty: 60 RF: 0 (DME) pen needle,diabetic, disp unit 29 gauge x 1/2 needle See Rx Instructions .ROUTE .MEDSUPPLY Qty: 100 RF: 0 potassium chloride [Klor-Con M20] 20 mEq Tablet,Er Particles/Crystals 20 meq PO BIDCM 7 Days Qty: 14 RF: 0 cephalexin 500 mg tablet 500 mg PO .QID Qty: 28 RF: 0 Continued kptsqge-wuzpvayzksfhk-ledwzcfo [Excedrin Migraine] 250-250-65 mg tablet 1 tab PO ONCE RF: 0 ibuprofen [Advil] 200 mg tablet 200 mg PO TID-QID PRN (Reason: Pain) RF: 0 levonorgestrel [Mirena] 20 mcg/24 hr (5 years) intrauterine device 1 insert Intrauterine ONCE RF: 0 Other Ambulatory Orders: Glucometer (Routine) Location: None Selected Ordered By: Catina James NP Referrals / Follow Up: Chaz Parker MD [STAFF PHYSICIAN] - In 1 Week (new onset diabetes. ) Care Physician,No Primary [Primary Care Provider] - Rita Dudley NP, KNITTING MACHINE OPERATOR HELPER-C [NON-STAFF] - 11/14/20 (for establishment of care and evaluation of vaginal swelling for d/c of frias) Disposition Disposition (needs filled in before D/C Order can be placed): Home, Self Care Charges/Coding Addendum Addendum: Dr. Wadsworth: I personally reviewed the chart and examined the patient, and agree with the above findings. 50-year-old female presents to the hospital vaginal cellulitis after grooming about a week ago. She does have extensive cellulitic changes with purulent drainage. This will be cultured, will continue with IV antibiotics for now she still has significant discomfort and has a Frias in place secondary to significant burning with urination. 11/09/2020: Redness has improved however still warm and tender. There is also still some drainage. Culture coming back with strep therefore can discontinue vancomycin and transition to Ancef IV. MRSA was negative. Hemoglobin A1c yesterday was elevated at 12.4. We will start her on insulin and Metformin on discharge she will need to follow-up with PCP for further monitoring and adjustment. Did discuss lifestyle modifications for weight loss. 11/10/2020: Doing well today, states that the infection seems to be a little bit better around her vagina and that the swelling has gone down. On evaluation there was some concern that if we remove the Frias given how swollen her labia were that we would be able to get another one and then she would have significant discomfort. We are setting her up with an outpatient physician therefore we will discharge her with the Frias in place and have her follow-up as an outpatient for removal. We will continue with insulin and Metformin, she will need to follow-up with endocrinology as an outpatient as well for newly diagnosed diabetes. Continue with Keflex for seven more days to complete treatment of her streptococcal infection and will also continue with potassium on discharge given that her tested today was 3.0. Recommend she follow-up with her PCP for outpatient labs as well when able. Visit Charges Inpatient E&M: 92245 Disch Hosp
[2020-11-10] MEDS: Potassium Chloride Oral Tablet 20 MEQ 60 MEQ PO (10:53)
[2020-11-10 11:16] LABS: Bedside Glucose 101 mg/dL (70-110)
== END 2020-11-10 12:55 | disposition home or self-care (01) | DRG 603 ==
LOC: ED 18:02 → MS3 23:32
PROVIDERS: Nurse Practitioner Family; Admitting Provider Family Medicine; Emergency Provider Emergency Medicine; Visit Provider Family Medicine
DX: L03.315 Cellulitis of perineum (principal); E11.9 Type 2 diabetes mellitus without complications; B95.5 Unspecified streptococcus as the cause of diseases classified elsewhere
CPT/HCPCS: 36415; 74177; 80048; 80053; 81001; 82962; 83036; 83605; 85025; 85610; 85730; 87040; 87070; 87075; 87077; 87086; 87088; 87186; 87205; 87641; 93005; 97802; 99284; J7030; J7040; Q9967; A4216

== ENCOUNTER → 2020-11-17 16:06 | Outpatient (CLI) | payer OTHER, SELFPAY ==
[2020-11-08 00:25] VITALS: BMI 27.0
[2020-11-17 17:09] LABS: Absolute Lymphocyte Count 3.22 X10^3/uL (0.83-4.51); Absolute Neutrophil Count 6.8 X10^3/uL (2.0-7.7); Basophil# 0.04 X10^3/uL; Basophil% 0.4 % (0-1); Eosinophil# 0.17 X10^3/uL; Eosinophils% 1.6 % (0-5); Hematocrit 42.9 % (37-47); Hemoglobin 14.2 g/dL (12.0-15.0); Lymphocyte # 3.22 X10^3/ul (0.83-4.51); Lymphocyte % 29.4 % (19-41); Mean Corp Hgb Conc 33.1 g/dL (32-36); Mean Corpuscular Hgb 27.9 pg (27.0-32.0); Mean Corpuscular Volume 84.3 fL (81-99); Mean Platelet Vol. 11.6 fl (6.2-12.0); Monocyte# 0.68 X10^3/uL; Monocyte% 6.2 % (0-10); NRBC Flagged by Analyzer 0 % (0-5); Neutrophil # 6.77 X10^3/uL (2.7-7.7); Neutrophil % 61.9 % (47-70); Platelet Count 416 K/mm3 (150-450); RBC Distribution Width CV 12.9 % (11.6-14.6); RBC Distribution Width SD 39.3 fl (35.1-43.9); Red Blood Count 5.09 M/mm3 (4.2-5.4); White Blood Count 10.9 K/mm3 (4.4-11.0)
[2020-11-17 18:07] LABS: Anion Gap 8 (5-15); BUN 17 mg/dL (7-18); BUN/Creat Ratio 26.2 RATIO (10-20); Calcium,Total 9.1 mg/dL (8.5-10.1); Chloride 100 mmol/L (98-107); Creatinine, Serum 0.65 mg/dL (0.55-1.02); EST Glomerular Filtration Rate 102 mL/min (>60); Est Glom Filt Rate - Afr Amer 123 mL/min (>60); Glucose 279 mg/dL (74-106); Potassium 3.8 mmol/L (3.5-5.1); Sodium Level 137 mmol/L (136-145)
== END ==
LOC: LAB 16:07
PROVIDERS: PCP Family Medicine; Referring Provider Registered Nurse; Visit Provider Registered Nurse
DX: L03.90 Cellulitis, unspecified (principal)
CPT/HCPCS: 36415; 80048; 85025